=== PATIENT | male | born 1990 | race Caucasian/White ===

== ENCOUNTER 2023-02-13 08:55 | Outpatient (AMB) | payer MEDICAID, SELFPAY ==
--- NOTE | 2023-02-13 09:05 | A.OFFVIS_ITS ---
Intake Intake Visit Reasons: Infertility/low sperm count Intake Note: New Patient presents for initial visit infertility/low sperm Urology Medications: none Blood Thinner: none Freight Coordinator Required: No Accompanied by: Self / Same As Patient Allergies Penicillins Allergy (Verified 02/13/23 20:13) Rash Medication List - Last Reconciled 02/13/23 by PETER Polk levothyroxine 25 mcg PO DAILY metformin 1,000 mg PO BID HPI HPI Comments History of Present Illness Details Pipo is a very pleasant 32-year-old male patient of Dr. Rainer Montero. He has a past medical history of type 2 diabetes and hypothyroidism. He presents to the office today as a new patient for question of infertility. In discussion with the patient today he reports to be doing and feeling well. He reports over the last year he has been actively trying to conceive. He reports having purchased an at home sperm analysis kit which noted low sperm count. He reports his partner has undergone infertility workup and has been told all is within normal limits. He denies any previous history of illness and or trauma. When asked he reports to be happy with his current voiding parameters. He denies urinary urgency, urinary frequency, incontinence, nocturia, hematuria, dysuria, foul smelling urine, changes to urinary stream, flank pain, fever, and or chills. He currently has no children. Discussed at length potential causes for infertility as well as further infertility workup. Patient denies any smoking or illicit drug use. He reports compliance with metformin daily and A1c approximately 1 month ago noted to be 7.5. Discussed at length importance of managing diabetes, avoiding caffeine, lowering BMI, appropriate nutrition and decrease in stress can assist in fertility. Patient otherwise denies any issues or concerns at this time. [facility] Medical History (Updated 02/13/23 @ 09:50 by PETER Polk) Male infertility Obesity (BMI 30-39.9) Type 2 diabetes mellitus Review of Systems Const All systems reviewed & are unremarkable except as noted in HPI and below Reports no additional complaints Eyes Reports no additional complaints ENT Reports no additional complaints Card Reports no additional complaints Resp Reports no additional complaints GI Reports no additional complaints Reports as per HPI Musc Reports no additional complaints Neuro Reports no additional complaints Psych Reports as per HPI Endo Reports as per HPI Pancho/Lymph Reports no additional complaints Aller/Immun Reports no additional complaints Physical Exam Const General: cooperative, healthy appearing, comfortable, no acute distress, well developed, alert and awake Orientation/consciousness: patient oriented x3 Limitations: no limitations HEENT Head: Yes normal to inspection, Yes normocephalic and Yes atraumatic Ears: hearing grossly normal bilaterally Eyes General: appearance normal, both eyes and all related structures Neck Neck: Yes normal visual inspection and Yes trachea midline Chest Chest palpation & inspection: normal inspection of the chest Resp Effort & Inspection: normal respiratory effort and able to speak in complete sentences Cardio Rate: regular rate GI Inspection: Yes normal to inspection General: Yes no CVA tenderness Back/Spine/Pelvis Back: no CVA tenderness Skin General skin exam: no rashes or lesions noted Neuro General: patient oriented x3 Extrem General: Yes normal to inspection Psych Appearance: grossly normal and well kempt Mental Status: mental status grossly normal Speech and movement: Normal speech and movement present and Clear speech present Affect: normal affect Attitude: cooperative Thought process: Normal thought process present Thought content: Normal thought content present Insight: Good insight present (Psych) Judgement: Good judgement present (Psych) Results AMB Urinalysis, Automated UA Leukoctes 0 Stefani/uL Last Edit by Imperva on 02/13/23 09:32 UA Nitrite Negative Last Edit by Imperva on 02/13/23 09:32 UA Urobilinogen 0.2 mg/dL Last Edit by Imperva on 02/13/23 09:32 UA Protein 15 mg/dL Last Edit by Imperva on 02/13/23 09:32 UA pH 7.5 Last Edit by Imperva on 02/13/23 09:32 UA Blood 0 Luis Armando/uL Last Edit by Imperva on 02/13/23 09:32 UA Specific [place] 1.010 Last Edit by Imperva on 02/13/23 09:32 UA Ketone Negative Last Edit by Imperva on 02/13/23 09:32 UA Bilirubin 0 mg/dL Last Edit by Imperva on 02/13/23 09:32 UA Glucose 0 mg/dL Last Edit by Imperva on 02/13/23 09:32 Results Reviewed Results Reviewed: Laboratory Last Values Urine pH (Auto) 7.5 02/13/23 09:07 Specific [place] (Auto) 1.010 02/13/23 09:07 Urine Protein (Auto) 15 mg/dL 02/13/23 09:07 Glucose (UA)(Auto) 0 mg/dL 02/13/23 09:07 Urine Ketones (Auto) Negative 02/13/23 09:07 Urine Blood (Auto) 0 Luis Armando/uL 02/13/23 09:07 Urine Nitrite (Auto) Negative 02/13/23 09:07 Urine Bilirubin (Auto) 0 mg/dL 02/13/23 09:07 Urine Urobilinogen (Auto) 0.2 mg/dL 02/13/23 09:07 Leukocyte Esterase (Auto) 0 Stefani/uL 02/13/23 09:07 Assessment & Plan Assessment & Plan (1) Male infertility: Code(s): N46.9 - Male infertility, unspecified Plan In office urinalysis results reviewed with the patient today; as noted above. Discussed at length potential causes for possible infertility. Will obtain estradiol, FSH, LH, prolactin, testosterone, free and total testosterone, and bioavailable testosterone. Discussed bringing in semen for semen analysis at next visit. Discussed at length lifestyle modifications to assist with possible infertility. Patient is happy with current voiding parameters. Follow-up in 1-[address] Ordoñez with labs to be completed prior and semen to be brought to follow-up appointment Orders: Orders Estradiol Ultra Sensitive Today E29.1 - Testicular hypofunction, N46.9 - Male infertility, unspecified Follicle Stimulating Hormone Today N46.9 - Male infertility, unspecified Lutenizing Hormone Today N46.9 - Male infertility, unspecified Prolactin Today N46.9 - Male infertility, unspecified Bioavailable Testosterone Today N46.9 - Male infertility, unspecified Testosterone, Free/Total Today N46.9 - Male infertility, unspecified AMB Urinalysis Automated Today Z13.9 - Encounter for screening, unspecified Coding Level of Care Code New Pt Level 3 (46731) Diagnoses Male infertility N46.9
== END 2023-02-13 09:51 | disposition home or self-care (01) ==
PROVIDERS: PCP Student in an Organized Health Care Education/Training Program; Visit Provider Nurse Practitioner Family
DX: N46.9 Male infertility, unspecified (principal)
CPT/HCPCS: 99203

== ENCOUNTER → 2023-02-13 08:55 | Outpatient (BNVA) | payer MEDICAID, SELFPAY | PROVIDERS: PCP Student in an Organized Health Care Education/Training Program; Visit Provider Nurse Practitioner Family | DX: N46.9 Male infertility, unspecified (principal); E29.1 Testicular hypofunction | CPT/HCPCS: 99202; 99203 ==

== ENCOUNTER 2023-02-14 09:17 | Outpatient (REF) | payer MEDICAID, SELFPAY ==
[2023-02-14 12:17] LABS: Free T4 (Free Thyroxine) 0.95 ng/dL (0.71-1.85); T4 Thyroxine 6.4 ug/dL (4.5-12.0); Thyroid Stimulating Hormone 2.49 uIU/mL (0.32-4.0)
[2023-02-15 08:38] LABS: Follicle Stimulating Hormone 6.6 mIU/mL (1.6-8.0); Prolactin 8.1 ng/mL (2.0-18.0)
[2023-02-19 07:43] LABS: Testosterone-Albumin 4.7 g/dL (3.6-5.1); Testosterone-Bioavailable 152.6 ng/dL (110.0-575.0); Testosterone-Free 71.2 pg/mL (46.0-224.0); Testosterone-SHBG 13 nmol/L (10-50); Testosterone-Total 301 ng/dL (250-1100)
[2023-02-20 20:29] LABS: Estradiol Ultra Sensitive 13 pg/mL (< OR = 29)
== END 2023-02-14 09:18 | disposition home or self-care (01) ==
LOC: HO.HHCL 09:17
PROVIDERS: Nurse Practitioner Family; Visit Provider Student in an Organized Health Care Education/Training Program
DX: N46.9 Male infertility, unspecified (principal); E29.1 Testicular hypofunction; E03.9 Hypothyroidism, unspecified
CPT/HCPCS: 36415; 82670; 83001; 83002; 84146; 84402; 84403; 84436; 84439; 84443

== ENCOUNTER 2023-04-10 15:47 | Outpatient (AMB) | payer MEDICAID, SELFPAY ==
--- NOTE | 2023-04-10 16:22 | MHC.OFFVIS ---
Intake Intake Visit Reasons: low sperm count- semen analysis/labs Intake Note: Patient presents for follow up visit infertility/low sperm Urology Medications: none Blood Thinner: none Fish Hatchery Laborer Required: No Accompanied by: Self / Same As Patient Allergies Penicillins Allergy (Verified 04/10/23 16:24) Rash HPI HPI Comments History of Present Illness Details Pipo is a pleasant male. He is a patient of Dr.Ponce Montero. He is seen for the following urologic conditions - male infertility Gross examination of sperm performed today. No sperm seen. Will moved to formal microscopy Male infertility - 32-year-old Has been trying for past year At home kit indicated low sperm count Partner evaluation negative Baseline laboratory evaluation 02/21 minimal abnormalities with normal free testosterone Has lost substantial weight and A1c 5.4 04/23 Complete initial formal evaluation May require post void pellet evaluation due to diabetic [facility] Medical History Obesity (BMI 30-39.9) Type 2 diabetes mellitus Male infertility Review of Systems Const Denies chills and Denies fever(s) Card Reports no additional complaints and Denies syncope Resp Denies cough GI Denies abdominal pain and Denies heartburn Reports as per HPI and Denies change in libido Neuro Denies syncope Psych Denies change in libido Endo Denies change in libido Physical Exam Const General: cooperative, healthy appearing, comfortable and no acute distress Orientation/consciousness: patient oriented x3 HEENT Face and sinus: Yes normal facial exam Mouth: moist mucous membranes Neck Neck: Yes normal visual inspection, Yes full ROM and Yes trachea midline Chest Chest palpation & inspection: normal inspection of the chest Resp Effort & Inspection: normal respiratory effort, able to speak in complete sentences and no respiratory distress GI Inspection: Yes normal to inspection Back/Spine/Pelvis Cervical Spine: normal cervical lordosis Thoracic/Lumbar Spine: thoracic and lumbar spine normal to inspection Skin General skin exam: no rashes or lesions noted Neuro General: patient oriented x3, gait normal, tone normal and moves all extremities Extrem General: Yes normal to inspection and Yes capillary refill normal Assessment & Plan Assessment & Plan (1) Male infertility: Code(s): N46.9 - Male infertility, unspecified Plan Formal semen analysis May benefit from attempt at bladder neck tightening using Sudafed Patient Instructions: Imaging studies, laboratory and physical exam results were discussed and reviewed in detail. No major barriers to patient understanding were identified. An opportunity to ask questions regarding the treatment plan was provided. All questions were answered. The patient expressed understanding and agreement with the above treatment plan. The patient is aware they should contact our office by phone for worsening of their current condition or the appearance of new urologic symptoms. Compliance is encouraged with any medications and followup testing that is ordered. It is a privilege to participate in the urologic care of your patient. If you have any questions or concerns regarding treatment for the above conditions, or other urologic issues, please do not hesitate to contact me. The office telephone contact is [phone]. This note is constructed using voice recognition software. While every effort has been made to ensure accuracy turning lathe tender errors may have been included. Yours sincerely, Dr Ernie Ordoñez MD, [facility] - Urology Providers of Expert, Compassionate Care for the Genitourinary System Coding Level of Care Code Est Pt Level 3 (55854) Diagnoses Male infertility N46.9
== END 2023-04-10 16:55 | disposition home or self-care (01) ==
PROVIDERS: PCP Student in an Organized Health Care Education/Training Program; Visit Provider Urology
DX: N46.9 Male infertility, unspecified (principal)
CPT/HCPCS: 99213

== ENCOUNTER → 2023-04-10 15:47 | Outpatient (BNVA) | payer MEDICAID, SELFPAY | PROVIDERS: PCP Student in an Organized Health Care Education/Training Program; Visit Provider Urology | DX: N46.9 Male infertility, unspecified (principal) | CPT/HCPCS: 99212 ==

== ENCOUNTER 2023-04-12 10:22 | Outpatient (REF) | payer MEDICAID, SELFPAY ==
[2023-04-12 12:34] LABS: Alanine Aminotransferase 18 U/L (0-40); Albumin Level 4.7 g/dL (3.5-5.0); Alkaline Phosphatase 43 U/L (39-117); Anion Gap 18 (12-20); Aspartate Amino Transferase 21 U/L (5-37); Bilirubin Total 0.8 mg/dL (0.0-1.0); Blood Urea Nitrogen 16 mg/dL (9-16); Calcium 10.6 mg/dL (8.4-10.2); Carbon Dioxide 23 mmol/L (22-29); Chloride 102 mmol/L (96-108); Cholesterol 291 mg/dL (<200); Estimated Glomerular Filt Rate > 60; Glucose Random 83 mg/dL (60-115); HDL Cholesterol 64 mg/dL (>40); LDL Cholesterol Calculated 208 mg/dL (<100); Potassium 4.2 mmol/L (3.3-5.1); Sodium 139 mmol/L (135-145); Total Protein 8.4 g/dL (6.5-8.0); Triglycerides 96 mg/dL (<150)
[2023-04-12 12:35] LABS: Syphilis Screen Nonreactive (Nonreactive)
[2023-04-12 12:41] LABS: Free T4 (Free Thyroxine) 0.96 ng/dL (0.71-1.85); Thyroid Stimulating Hormone 2.66 uIU/mL (0.32-4.0)
[2023-04-12 12:47] LABS: Folate 10.7 ng/mL (> or = 4.0); Vitamin B12 882 pg/mL (200-900)
[2023-04-12 12:49] LABS: Estimated Average Glucose 108 mg/dL; Hemoglobin A1c % 5.4 % (<6.0)
[2023-04-12 13:25] LABS: Creatinine Urine 15.83 mg/dL; Microalbumin Urine < 5.0 mg/L
== END 2023-04-12 10:23 | disposition home or self-care (01) ==
LOC: HO.HHCL 10:22
PROVIDERS: Visit Provider Student in an Organized Health Care Education/Training Program
DX: Z00.00 Encounter for general adult medical examination without abnormal findings (principal); E03.9 Hypothyroidism, unspecified; E11.9 Type 2 diabetes mellitus without complications
CPT/HCPCS: 36415; 80053; 80061; 82043; 82570; 82607; 82746; 83036; 84439; 84443; 86780

== ENCOUNTER 2023-05-23 09:50 | Outpatient (AMB) | payer SELFPAY ==
--- NOTE | 2023-05-23 09:49 | A.OFFVIS_ITS ---
Intake Intake Visit Reasons: sperm analysis results Intake Note: Pipo is a 33 year old male who presents today VIA telehealth for results Allergies Penicillins Allergy (Verified 05/23/23 09:51) Rash Medication List - Last Reconciled 05/23/23 by Ernie Ordoñez MD levothyroxine 25 mcg PO DAILY metformin 1,000 mg PO BID HPI HPI Comments History of Present Illness Details Pipo is a pleasant male. He is a patient of Dr.Ponce Montero. He is seen for the following urologic conditions - male infertility Telemedicine Evaluation 15 min Consultation DoxXirrus Nohemi Video Discussed formal semen analysis Low volume, low pH, azoospermia Next step involves post ejaculation urinalysis since has history of diabetes Genetic testing for CFTR, Y chromosome microdeletion and karyotype Transrectal ultrasound to look for enlarged seminal vesicles from probable ejaculatory duct obstruction Discussed treatment for ejaculatory duct obstruction. HEATH typically associated with low volume, low pH and azospermia - The presence of an acidic and low vol ume azoospermic ejaculate, associated with absent seminal fructose, and palpable vas deferens is pathognomonic for the HEATH diagnosis Male Infertility Has been trying for past year At home kit indicated low sperm count Partner evaluation negative Has lost substantial weight and A1c 5.4 04/23 Initial office evaluation no sperm seen in sample He presents today for - follow-up evaluation Duration of infertility - has been trying for 12 months Prior no Coital timing - Patient is familiar with basal temperature monitoring to protect egg release yes Puberty onset - 11, normal facial head Prior genital surgery - no Risk factors for fertility include - present diabetes - reduced HbA1c to 5. 4 with metformin weight loss - absent varicocele, genital infection, cryptorchidism, hormonal disorder, genetic disorder, cirrhosis, gonadotoxin exposure - chemotherapy, radiation, occupational chemical, hyperthermia, cigarette Laboratories - 04/23 normal testosterone, normal FSH 6.6 Semen analysis - total motile sperm less than 10,000,00 0 - consistent with severe infertility - parameters include low volume less tami n 1.5 cc, low pH less than 7.2 - morphology azoospermic Genetics - CFTR, Y chromosome micro deletion, Karyotype - pending Imaging - TRUS pending Therapeutic plan includes - repeat semen analysis with post ejacul atory urine, imaging, genetics [facility] Medical History Obesity (BMI 30-39.9) Type 2 diabetes mellitus Male infertility Review of Systems Const All systems reviewed & are unremarkable except as noted in HPI and below Reports no additional complaints Resp Reports no additional complaints GI Reports no additional complaints Reports as per HPI Musc Reports no additional complaints Physical Exam Telemedicine evaluation Appropriate responses Regular breathing rate and rhythm HEENT Head: Yes normal to inspection Ears: hearing grossly normal bilaterally Eyes General: appearance normal, both eyes and all related structures Neck Neck: Yes normal visual inspection Chest Chest palpation & inspection: normal inspection of the chest Resp Effort & Inspection: normal respiratory effort and able to speak in complete sentences Assessment & Plan Assessment & Plan (1) Male infertility: Code(s): N46.9 - Male infertility, unspecified Plan Complaint investigations with imaging Orders: Orders Other Ref Test - Misc Today N46.9 - Male infertility, unspecified US prostate volume Today N46.9 - Male infertility, unspecified Patient Instructions: Imaging studies, laboratory and physical exam results were discussed and reviewed in detail. No major barriers to patient understanding were identified. An opportunity to ask questions regarding the treatment plan was provided. All questions were answered. The patient expressed understanding and agreement with the above treatment plan. The patient is aware they should contact our office by phone for worsening of their current condition or the appearance of new urologic symptoms. Compliance is encouraged with any medications and followup testing that is ordered. It is a privilege to participate in the urologic care of your patient. If you have any questions or concerns regarding treatment for the above conditions, or other urologic issues, please do not hesitate to contact me. The office telephone contact is [phone]. This note is constructed using voice recognition software. While every effort has been made to ensure accuracy landing signal officer errors may have been included. Yours sincerely, Dr Ernie Ordoñez MD, [facility] - Urology Providers of Expert, Compassionate Care for the Genitourinary System Telehealth Telehealth Location of provider rendering services: practice address Location of patient: address on file Patient Identification confirmed using: Name, : Yes Telehealth method: video Patient verbally consented to treatment: Yes Patient verbally consented to billing insurance company: Yes Patient informed of any privacy concerns related to visit: Yes Coding Level of Care Code Tele Est Pt Level 4 (29028) Diagnoses Male infertility N46.9
== END 2023-05-23 12:52 | disposition home or self-care (01) ==
LOC: HO.HUSH 09:50
PROVIDERS: PCP Student in an Organized Health Care Education/Training Program; Visit Provider Urology
DX: N46.9 Male infertility, unspecified (principal)
CPT/HCPCS: 99214

== ENCOUNTER → 2023-05-23 09:50 | Outpatient (BNVA) | payer MEDICAID, SELFPAY | PROVIDERS: PCP Student in an Organized Health Care Education/Training Program; Visit Provider Urology ==

== ENCOUNTER 2023-07-10 08:33 | Outpatient (REF) | payer OTHER, SELFPAY ==
[2023-07-10 12:02] LABS: Alanine Aminotransferase 24 U/L (0-40); Albumin Level 4.7 g/dL (3.5-5.0); Alkaline Phosphatase 49 U/L (39-117); Anion Gap 16 (12-20); Aspartate Amino Transferase 20 U/L (5-37); Bilirubin Total 0.8 mg/dL (0.0-1.0); Blood Urea Nitrogen 15 mg/dL (9-16); Calcium 10.2 mg/dL (8.4-10.2); Carbon Dioxide 25 mmol/L (22-29); Chloride 104 mmol/L (96-108); Cholesterol 343 mg/dL (<200); Estimated Glomerular Filt Rate > 60; Glucose Random 95 mg/dL (60-115); HDL Cholesterol 70 mg/dL (>40); LDL Cholesterol Calculated 253 mg/dL (<100); Potassium 4.6 mmol/L (3.3-5.1); Sodium 140 mmol/L (135-145); Total Protein 8.4 g/dL (6.5-8.0); Triglycerides 104 mg/dL (<150)
== END 2023-07-10 08:34 | disposition home or self-care (01) ==
LOC: HO.HHCL 08:33
PROVIDERS: Visit Provider Student in an Organized Health Care Education/Training Program
DX: E78.5 Hyperlipidemia, unspecified (principal)
CPT/HCPCS: 36415; 80053; 80061

== ENCOUNTER → 2023-07-11 11:37 | Outpatient (BNVA) | payer MEDICAID, SELFPAY | PROVIDERS: PCP Student in an Organized Health Care Education/Training Program; Visit Provider Urology ==

== ENCOUNTER 2023-07-31 14:34 | Outpatient (REF) | payer BC, SELFPAY ==
--- NOTE | ~2023-07-31 | US_ITS ---
ULTRASOUND PROSTATE GLAND CLINICAL: Male infertility. COMPARISON: None. TECHNIQUE: Using transrectal technique with grayscale and color modalities, ultrasound examination is performed of the prostate gland. FINDINGS: Prostate dimensions are 4.0 x 2.0 x 3.4 cm (volume 14.8 mL). There are coarse central and apical prostate calcifications. No discrete prostate lesion is seen. The seminal vesicles show symmetric mild enlargement, without focal lesion identified. No pelvic free fluid is seen. US/US prostate volume IMPRESSION: 1. Prostate volume is within normal limits. No focal prostate lesion is noted. 2. There is symmetric mild enlargement of the bilateral seminal vesicles.
== END 2023-07-31 14:35 | disposition home or self-care (01) ==
LOC: HO.US 14:34
PROVIDERS: PCP Student in an Organized Health Care Education/Training Program; Visit Provider Urology
DX: N46.9 Male infertility, unspecified (principal)
CPT/HCPCS: 76872

== ENCOUNTER 2023-09-12 09:59 | Outpatient (AMB) | payer BC, SELFPAY ==
--- NOTE | 2023-09-12 10:06 | A.OFFVIS_ITS ---
Intake Intake Visit Reasons: /(set) LVM reminder Intake Note: Patient presents today for a follow-up on U/S Meds- None Allergies to Antibiotic- Penicillins Blood Thinner- None General Technician Required: No Accompanied by: Self / Same As Patient Allergies Penicillins Allergy (Verified 09/12/23 10:10) Rash Medication List - Last Reconciled 09/12/23 by Ernie Ordoñez MD levothyroxine 25 mcg PO DAILY metformin 1,000 mg PO BID multivitamin (Multiple Vitamins tablet) 1 tab PO DAILY HPI HPI Comments History of Present Illness Details Pipo is a pleasant male. He is a patient of Dr.Ponce Montero. He is seen for the following urologic conditions - male infertility Discussed ultrasound results Unless seminal vesicles Recommend ejaculatory duct obstruction procedure Would use cannulation with laser incision Explained risks and benefits including possibility that sperm may not be recovered He is willing to go ahead with trial Discussed treatment for ejaculatory duct obstruction. HEATH typically associated with low volume, low pH and azospermia - The presence of an acidic and low vol ume azoospermic ejaculate, associated with absent seminal fructose, and palpable vas deferens is pathognomonic for the HEATH diagnosis Male Infertility Has been trying for past year At home kit indicated low sperm count Partner evaluation negative Has lost substantial weight and A1c 5.4 04/23 Initial office evaluation no sperm seen in sample He presents today for - follow-up evaluation Duration of infertility - has been trying for 12 months Prior no Coital timing - Patient is familiar with basal temperature monitoring to protect egg release yes Puberty onset - 11, normal facial head Prior genital surgery - no Risk factors for fertility include - present diabetes - reduced HbA1c to 5. 4 with metformin weight loss - absent varicocele, genital infection, cryptorchidism, hormonal disorder, genetic disorder, cirrhosis, gonadotoxin exposure - chemotherapy, radiation, occupational chemical, hyperthermia, cigarette Laboratories - 04/23 normal testosterone, normal FSH 6.6 Semen analysis - total motile sperm less than 10,000,00 0 - consistent with severe infertility - parameters include low volume less tami n 1.5 cc, low pH less than 7.2 - morphology azoospermic Genetics - CFTR, Y chromosome micro deletion, Karyotype - pending Imaging - TRUS pending Therapeutic plan includes - ejaculatory duct incision with ejacula tory duct cannulization [facility] Medical History Obesity (BMI 30-39.9) Type 2 diabetes mellitus Male infertility Review of Systems Const Denies chills and Denies fever(s) Card Reports no additional complaints and Denies syncope Resp Denies cough GI Denies abdominal pain and Denies heartburn Reports as per HPI and Denies change in libido Neuro Denies syncope Psych Denies change in libido Endo Denies change in libido Physical Exam Const General: cooperative, healthy appearing, comfortable and no acute distress Orientation/consciousness: patient oriented x3 HEENT Face and sinus: Yes normal facial exam Mouth: moist mucous membranes Neck Neck: Yes normal visual inspection, Yes full ROM and Yes trachea midline Chest Chest palpation & inspection: normal inspection of the chest Resp Effort & Inspection: normal respiratory effort, able to speak in complete sentences and no respiratory distress GI Inspection: Yes normal to inspection Back/Spine/Pelvis Cervical Spine: normal cervical lordosis Thoracic/Lumbar Spine: thoracic and lumbar spine normal to inspection Skin General skin exam: no rashes or lesions noted Neuro General: patient oriented x3, gait normal, tone normal and moves all extremities Extrem General: Yes normal to inspection and Yes capillary refill normal Assessment & Plan Assessment & Plan (1) Male infertility: Code(s): N46.9 - Male infertility, unspecified (2) Congenital atresia of ejaculatory duct: Code(s): Q55.4 - Other congenital malformations of vas deferens, epididymis, seminal vesicles and prostate Plan Risks, benefits and alternatives to therapy were discussed. These include but are not limited to infection, bleeding, damage to local organs and tissues, need for further interventions. Anesthetic risks regarding cardiac arrhythmia, blood clots, and potential mortality were discussed. The patient understands the typical recovery time and the outpatient nature of the procedure. After consideration of these risks the patient gives full informed consent and they wish to move ahead with the procedure. Plan for cystoscopy with ejaculatory duct cannulization and ejaculatory duct incision using laser Patient Instructions: Imaging studies, laboratory and physical exam results were discussed and reviewed in detail. No major barriers to patient understanding were identified. An opportunity to ask questions regarding the treatment plan was provided. All questions were answered. The patient expressed understanding and agreement with the above treatment plan. The patient is aware they should contact our office by phone for worsening of their current condition or the appearance of new urologic symptoms. Compliance is encouraged with any medications and followup testing that is ordered. It is a privilege to participate in the urologic care of your patient. If you have any questions or concerns regarding treatment for the above conditions, or other urologic issues, please do not hesitate to contact me. The office telephone contact is [phone]. This note is constructed using voice recognition software. While every effort has been made to ensure accuracy radiographer mammographer errors may have been included. Yours sincerely, Dr Ernie Ordoñez MD, [facility] - Urology Providers of Expert, Compassionate Care for the Genitourinary System Coding Level of Care Code Est Pt Level 4 (19043) Diagnoses Male infertility N46.9 Congenital atresia of ejaculatory duct Q55.4
== END 2023-09-12 10:39 | disposition home or self-care (01) ==
PROVIDERS: PCP Student in an Organized Health Care Education/Training Program; Visit Provider Urology
DX: N46.9 Male infertility, unspecified (principal); Q55.4 Other congenital malformations of vas deferens, epididymis, seminal vesicles and prostate
CPT/HCPCS: 99214

== ENCOUNTER → 2023-09-12 09:59 | Outpatient (BNVA) | payer OTHER, SELFPAY | PROVIDERS: PCP Student in an Organized Health Care Education/Training Program; Visit Provider Urology | DX: N46.9 Male infertility, unspecified (principal); Q55.4 Other congenital malformations of vas deferens, epididymis, seminal vesicles and prostate; Z79.899 Other long term (current) drug therapy | CPT/HCPCS: 99212 ==

== ENCOUNTER 2023-10-17 08:59 | Outpatient (REF) | payer BC, SELFPAY ==
[2023-10-17 12:01] LABS: Estimated Average Glucose 114 mg/dL; Hemoglobin A1C 149.0719 umol/L; Hemoglobin A1c % 5.6 % (<6.0)
[2023-10-17 12:14] LABS: Alanine Aminotransferase 17 U/L (0-40); Albumin Level 4.5 g/dL (3.5-5.0); Alkaline Phosphatase 49 U/L (39-117); Anion Gap 12 (12-20); Aspartate Amino Transferase 20 U/L (5-37); Bilirubin Total 0.7 mg/dL (0.0-1.0); Blood Urea Nitrogen 15 mg/dL (9-16); Calcium 9.6 mg/dL (8.4-10.2); Carbon Dioxide 25 mmol/L (22-29); Chloride 104 mmol/L (96-108); Cholesterol 305 mg/dL (<200); Estimated Glomerular Filt Rate > 60; Glucose Random 99 mg/dL (60-115); HDL Cholesterol 90 mg/dL (>40); LDL Cholesterol Calculated 203 mg/dL (<100); Potassium 4.3 mmol/L (3.3-5.1); Sodium 137 mmol/L (135-145); Triglycerides 61 mg/dL (<150)
[2023-10-17 12:17] LABS: Free T4 (Free Thyroxine) 0.84 ng/dL (0.71-1.85); Thyroid Stimulating Hormone 2.07 uIU/mL (0.32-4.0)
[2023-10-17 12:25] LABS: Vitamin B12 768 pg/mL (200-900)
== END 2023-10-17 09:00 | disposition home or self-care (01) ==
LOC: HO.HHCL 08:59
PROVIDERS: Visit Provider Student in an Organized Health Care Education/Training Program
DX: E11.9 Type 2 diabetes mellitus without complications (principal); E03.9 Hypothyroidism, unspecified
CPT/HCPCS: 36415; 80053; 80061; 82607; 82746; 83036; 84439; 84443

== ENCOUNTER 2023-10-29 09:53 | Day surgery (SDC) | payer BC, OTHER, SELFPAY ==
[2023-10-25 14:16] VITALS: BMI 31.4
--- NOTE | 2023-10-26 09:05 | HO.ANESPROP2 ---
Documented by User: Kailey Barriga NP 10/26/23 09:05 HPI - Anesthesia Eval Consult details Narrative: 33yo M for Cystoscopy Ejaculatory duct exploration [facility] Active Problems Active Problems: All Active Problems Congenital atresia of ejaculatory duct (Acute) Male infertility (Acute) Past Medical History Medical History Obesity (BMI 30-39.9) Type 2 diabetes mellitus Male infertility Social History Social History Patient Tobacco Use Status: Never used Tobacco Substance Use Frequency: Occasionally Are you DNR?: No Advance Directives: No Advance Directives Information Provided: Yes Nutrition Risks: No Nutritional Risk Meds Allergies Allergy/AdvReac Type Severity Reaction Status Date / Time Penicillins Allergy Rash Verified 09/12/23 10:10 Home Medications ?Medication ?Instructions ?Recorded ?Confirmed ?Last Taken ?Type levothyroxine 25 mcg tablet 25 mcg PO DAILY 02/07/23 09/12/23 Unknown History metformin 1,000 mg tablet 1,000 mg PO BID 02/07/23 09/12/23 Unknown History multivitamin (Multiple Vitamins 1 tab PO DAILY 09/12/23 09/12/23 Unknown History tablet) Exam Height,Weight and Vital Signs: Height 5 ft 3 in Weight 80.286 kg Assessment and Plan Assessment Anesthesia Assessment: Chart Reviewed Documented by User: Leia Ang MD 10/29/23 12:05 [facility] Past Medical History Medical History Obesity (BMI 30-39.9) Type 2 diabetes mellitus Male infertility Family History Family history of problems with anesthesia: No Surgical History History of Problems with Anesthesia: No Social History Social History Patient Tobacco Use Status: Never used Tobacco Substance Use Frequency: Occasionally Are you DNR?: No Advance Directives: No Advance Directives Information Provided: Yes Nutrition Risks: No Nutritional Risk Meds Allergies Allergy/AdvReac Type Severity Reaction Status Date / Time Penicillins Allergy Rash Verified 09/12/23 10:10 Home Medications ?Medication ?Instructions ?Recorded ?Confirmed ?Last Taken ?Type levothyroxine 25 mcg tablet 25 mcg PO DAILY 02/07/23 09/12/23 Unknown History metformin 1,000 mg tablet 1,000 mg PO BID 02/07/23 09/12/23 Unknown History multivitamin (Multiple Vitamins 1 tab PO DAILY 09/12/23 09/12/23 Unknown History tablet) Exam Airway Mallampati Class: II TM Dist: >3cm Neck ROM: Full Assessment and Plan Assessment Anesthesia Assessment: Anesthesia Plan Discussed Final Anesthetic Review Family History of Problems with Anesthesia: No History of Problems with Anesthesia: No NPO: Yes ASA Class: II Final Preanesthetic Review: No Changes in Pt Med Stat, Meds/Allgs Chart Reviewed, Consent Obtained/Reviewed and Anes Risks/Benef Reviewed Patient Risk: Low Procedure Risk: Low Anesthetic Plan Anesthetic Plan: GA Disposition: Standard PACU
[2023-10-29] MEDS: Lactated Ringers 1,000 ML 100 ML IVCONT (11:33)
[2023-10-29 11:35] VITALS: BP 125/70; PULSE 66; RESP 18; TEMP 36.6; O2SAT 98
[2023-10-29 11:35] LABS: Glucose, Whole Blood 128 mg/dL (60-115)
[2023-10-29 11:36] VITALS: BMI 28.7
--- NOTE | 2023-10-29 13:46 | MHC.SHP ---
Pre-Procedural Eval Section A - 24 Hr Update-Section A only Date of Service: 10/29/23 The patient is an INPATIENT: No Changes since office visit: No Cold of Flu in the past 2 weeks, No New Medical Problems, No Changes in Medication and No Patient answered all questions The patient has been examined within 24 hours of the surgical procedure. The History & Physical has been completed within 30 days and I have reviewed it.: Yes Section B - Complete if H&P > 30 days Chief Complaint: Male infertility, unspecified Allergies: Allergies Allergy/AdvReac Type Severity Reaction Status Date / Time Penicillins Allergy Rash Verified 09/12/23 10:10 Plan Diagnosis/Plan: Unchanged (Cystoscopy with bilateral vesiculoscopy) I have reviewed the history and physical and performed a pertinent physical examination on my patient. No changes have occurred unless specified. Time Spent With Patient Time: Total time managing care of this patient today ____ minutes.
[2023-10-29 15:05] VITALS: BP 126/79; PULSE 72; RESP 14; TEMP 36.4; O2SAT 99
[2023-10-29 15:10] VITALS: BP 128/81; PULSE 64; RESP 16; O2SAT 96
[2023-10-29 15:15] VITALS: BP 114/84; PULSE 65; RESP 16; O2SAT 96
[2023-10-29 15:20] VITALS: BP 124/85; PULSE 64; RESP 20; O2SAT 97
[2023-10-29 15:35] VITALS: BP 126/84; PULSE 68; RESP 20; TEMP 36.4; O2SAT 97
--- NOTE | 2023-11-13 15:24 | W.PM.OPN ---
Operative Note Operative Note Date of Service: 10/29/23 Narrative: PreOperative Diagnosis: painful ejaculation, oligospermia Post Operative Diagnosis: painful ejaculation, oligospermia Procedure: Bilateral vesiculoscopy with bilateral seminal vesicle incision - [facility] [id number] Surgeon: Dr Ernie Ordoñez Anesthesia: General Indications for procedure: Seminal vesicle enlargement with inflammation and pain on ejactulation Procedure: After informed consent was verified the patient was brought to the operating room and placed in a supine position. Anesthesia was administered per protocol. The patient was placed in modified dorsal lithotomy position. The patient was prepped and draped in a sterile fashion. Safety pause time-out was performed. Antibiotics being given. Using a short ureteral scope the ureteral scope was advanced into the urethra. The verumontanum was enterd. At the verumontanum small opening could be seen to the left side. This was cannulated with a Glidewire. The ureteral scope was removed. Under fluoroscopy which confirmed the Glidewire been inserted into the left seminal vesicle. The ureteral scope was reinserted. Using a holmium laser with low power settings incision was made into the left seminal vesicle docked. The scope was advanced. There was debris and discolored seminal fluid within the duct. This was irrigated clear. Irrigation had 400 mg of Levaquin within 1 L. Attempt was made to find the right ejaculatory duct at the 5 o'clock position from the utricle opening. This was not easily found. We advanced the scope into the utricle and through the right posterolateral aspect divided the thin membrane that allowed entry into the right ejaculatory duct seminal vesicle. This too was irrigated. At the completion of the procedure we removed the ureteral scope. A 14 Iceland[place] Laird catheter was placed which will remain overnight. Patient tolerated procedure well was extubated at the completion
== END 2023-10-29 15:45 | disposition home or self-care (01) ==
PROVIDERS: PCP Student in an Organized Health Care Education/Training Program; Visit Provider Urology
PROC: 0TJB8ZZ Inspection of Bladder, Via Natural or Artificial Opening Endoscopic (ICD-10-PCS; CPT 52000; principal; 2023-10-29 11:50)
DX: N46.9 Male infertility, unspecified (principal); E11.9 Type 2 diabetes mellitus without complications; E66.9 Obesity, unspecified; Z79.84 Long term (current) use of oral hypoglycemic drugs; Z79.899 Other long term (current) drug therapy; Z88.0 Allergy status to penicillin
CPT/HCPCS: 55605; 82947; C1769; J0131; J1100; J1956; J2250; J2405; J2704; J3010; Q9967

== ENCOUNTER → 2023-10-29 09:53 | Outpatient (BNV) | payer MEDICAID, SELFPAY | PROVIDERS: PCP Student in an Organized Health Care Education/Training Program; Visit Provider Urology | DX: N46.12 Oligospermia due to extratesticular causes (principal) | CPT/HCPCS: 55605 ==

== ENCOUNTER 2023-11-30 13:50 | Outpatient (AMB) | payer MEDICAID, SELFPAY ==
--- NOTE | 2023-11-30 13:56 | MHC.OFFVIS ---
Intake Visit Reasons: Ejaculatory duct exploration- follow up Allergies Penicillins Allergy (Verified 09/12/23 10:10) Rash Medication List - Last Reconciled 11/30/23 by Ernie Ordoñez MD levothyroxine 25 mcg PO DAILY metformin 1,000 mg PO BID multivitamin (Multiple Vitamins tablet) 1 tab PO DAILY pentoxifylline ER 400 mg PO BID 90 days vitamin E (dl, acetate) 450 mg PO DAILY 90 days HPI Comments Details: Pipo is a pleasant male. He is a patient of Dr.Ponce Montero. He is seen for the following urologic conditions - male infertility Ejaculatory duct vesiculoscopy performed 09/22 - left duct opened Will complete sperm evaluation Has noticed improvement in ejaculatory volume They have plan for ICI Male Infertility Has been trying for past year At home kit indicated low sperm count Partner evaluation negative Has lost substantial weight and A1c 5.4 04/23 Initial office evaluation no sperm seen in sample He presents today for - follow-up evaluation Duration of infertility - has been trying for 12 months Prior no Coital timing - Patient is familiar with basal temperature monitoring to protect egg release yes Puberty onset - 11, normal facial head Prior genital surgery - no Risk factors for fertility include - present diabetes - reduced HbA1c to 5.4 with metformin weight loss - absent varicocele, genital infection, cryptorchidism, hormonal disorder, genetic disorder, cirrhosis, gonadotoxin exposure - chemotherapy, radiation, occupational chemical, hyperthermia, cigarette Laboratories - 04/23 normal testosterone, normal FSH 6.6 Semen analysis - total motile sperm less than 10,000,000 - consistent with severe infertility - parameters include low volume less than 1.5 cc, low pH less than 7.2 - morphology azoospermic Genetics - CFTR, Y chromosome micro deletion, Karyotype - pending Imaging - TRUS pending Therapeutic plan includes - ejaculatory duct incision with [facility]aculatory duct cannulization [facility] Medical History Obesity (BMI 30-39.9) Type 2 diabetes mellitus Male infertility Social History Patient Tobacco Use Status: Never used Tobacco Review of Systems Const Denies chills and Denies fever(s) Card Reports no additional complaints and Denies syncope Resp Denies cough GI Denies abdominal pain and Denies heartburn Reports as per HPI and Denies change in libido Neuro Denies syncope Psych Denies change in libido Endo Denies change in libido Physical Exam Const General: cooperative, healthy appearing, comfortable and no acute distress Orientation/consciousness: patient oriented x3 HEENT Face and sinus: Yes normal facial exam Mouth: moist mucous membranes Neck Neck: Yes normal visual inspection, Yes full ROM and Yes trachea midline Chest Chest palpation & inspection: normal inspection of the chest Resp Effort & Inspection: normal respiratory effort, able to speak in complete sentences and no respiratory distress GI Inspection: Yes normal to inspection Back/Spine/Pelvis Cervical Spine: normal cervical lordosis Thoracic/Lumbar Spine: thoracic and lumbar spine normal to inspection Skin General skin exam: no rashes or lesions noted Neuro General: patient oriented x3, gait normal, tone normal and moves all extremities Extrem General: Yes normal to inspection and Yes capillary refill normal Assessment & Plan Assessment & Plan (1) Congenital atresia of ejaculatory duct: Code(s): Q55.4 - Other congenital malformations of vas deferens, epididymis, seminal vesicles and prostate Category: Medical (2) Male infertility: Code(s): N46.9 - Male infertility, unspecified Category: Medical Plan P.r.n. 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 No major barriers to patient understanding were identified. An opportunity to ask questions regarding the treatment plan was provided. All questions were answered. The patient expressed understanding and agreement with the above treatment plan. The patient is aware they should contact our office by phone for worsening of their current condition or the appearance of new urologic symptoms. Compliance is encouraged with any medications and followup testing that is ordered. It is a privilege to participate in the urologic care of your patient. If you have any questions or concerns regarding treatment for the above conditions, or other urologic issues, please do not hesitate to contact me. The office telephone contact is [phone]. This note is constructed using voice recognition software. While every effort has been made to ensure accuracy rod cup filler errors may have been included. Yours sincerely, Dr Ernie Ordoñez MD, [facility] - Urology Providers of Expert, Compassionate Care for the Genitourinary System Coding Level of Care Code Est Pt Level 3 (23179) Diagnoses Congenital atresia of ejaculatory duct Q55.4 Male infertility N46.9
== END 2023-11-30 14:53 | disposition home or self-care (01) ==
PROVIDERS: PCP Student in an Organized Health Care Education/Training Program; Visit Provider Urology
DX: Q55.4 Other congenital malformations of vas deferens, epididymis, seminal vesicles and prostate (principal); N46.9 Male infertility, unspecified
CPT/HCPCS: 99024

== ENCOUNTER → 2023-11-30 13:50 | Outpatient (BNVA) | payer MEDICAID, SELFPAY | PROVIDERS: PCP Student in an Organized Health Care Education/Training Program; Visit Provider Urology | DX: N46.9 Male infertility, unspecified (principal); E11.9 Type 2 diabetes mellitus without complications; Q55.4 Other congenital malformations of vas deferens, epididymis, seminal vesicles and prostate | CPT/HCPCS: 99212 ==

== ENCOUNTER 2024-03-06 08:34 | Outpatient (REF) | payer MEDICAID, SELFPAY ==
[2024-03-06 11:35] LABS: Hematocrit 45.2 % (42.0-52.0); Hemoglobin 15.2 g/dl (14.0-18.0); Mean Corpuscular HGB Conc 33.6 g/dl (31.0-36.0); Mean Corpuscular Hemoglobin 29.2 pg (27.0-33.0); Mean Corpuscular Volume 86.9 fL (80.0-98.0); Mean Platelet Volume 10.7 fL (9.4-12.4); Platelet Count 296 X10*3/uL (160-400); Red Cell Distribution Width 12.4 % (11.0-16.0); White Blood Count 5.8 X10*3/uL (4.8-10.8)
[2024-03-06 12:10] LABS: Syphilis Screen Nonreactive (Nonreactive)
[2024-03-06 12:17] LABS: Alanine Aminotransferase 16 U/L (0-40); Albumin Level 4.4 g/dL (3.5-5.0); Alkaline Phosphatase 42 U/L (39-117); Anion Gap 13 (12-20); Aspartate Amino Transferase 16 U/L (5-37); Bilirubin Total 0.7 mg/dL (0.0-1.0); Blood Urea Nitrogen 18 mg/dL (9-16); Calcium 9.9 mg/dL (8.4-10.2); Carbon Dioxide 23 mmol/L (22-29); Chloride 106 mmol/L (96-108); Cholesterol 258 mg/dL (<200); Estimated Average Glucose 114 mg/dL; Estimated Glomerular Filt Rate > 60; Glucose Random 105 mg/dL (60-115); HDL Cholesterol 67 mg/dL (>40); Hemoglobin A1c % 5.6 % (<6.0); LDL Cholesterol Calculated 172 mg/dL (<100); Potassium 4.1 mmol/L (3.3-5.1); Sodium 138 mmol/L (135-145); Total Protein 7.6 g/dL (6.5-8.0); Triglycerides 98 mg/dL (<150)
[2024-03-06 12:18] LABS: Free T4 (Free Thyroxine) 0.86 ng/dL (0.71-1.85); Thyroid Stimulating Hormone 1.83 uIU/mL (0.32-4.0)
[2024-03-06 12:21] LABS: Creatinine Urine 103.76 mg/dL; Microalbumin Urine < 5.0 mg/L
[2024-03-06 12:24] LABS: Folate 9.5 ng/mL (> or = 4.0); Vitamin B12 855 pg/mL (200-900)
[2024-03-06 12:40] LABS: HBS Num1 > 1000.00 mIU/mL (0-7.99); HIV AB/AG Nonreactive (Nonreactive); HIV Num 1 0.06 S/CO (0.00-0.99); Hepatitis B Core Antibody Nonreactive (Nonreactive); Hepatitis B Surface Antigen Negative (Negative); ~HepC Num1 0.18 S/CO (0.00-0.79); ~Hepatitis B Surface Antibody REACTIVE (Nonreactive); ~Hepatitis C Antibody Nonreactive (Nonreactive)
[2024-03-06 13:13] LABS: CT PCR NOT DETECTED (Not Detect.); NG PCR NOT DETECTED (Not Detect.)
== END 2024-03-06 08:35 | disposition home or self-care (01) ==
LOC: HO.HHCL 08:34
PROVIDERS: Visit Provider Student in an Organized Health Care Education/Training Program
DX: Z00.00 Encounter for general adult medical examination without abnormal findings (principal)
CPT/HCPCS: 36415; 80053; 80061; 82043; 82570; 82607; 82746; 83036; 84439; 84443; 85027; 86704; 86706; 86780; 86803; 87340; 87389; 87491; 87591

== ENCOUNTER 2025-04-07 10:03 | Outpatient (REF) | payer MEDICAID, SELFPAY ==
--- OUTSIDE RECORDS SUMMARY | 2025-04-07 09:15 | XMS_ITS | Encounter Summary ---
Author Organization [employer] Address [address] [place] [address] [address] [place] [address] Care Team Providers Care Aviation Survival Technician Name Role Phone Yue Quiros MD Primary Care Pro vider Encounter Details Date Type Department Care Team (Late st Contact Info) Description 04/07/2025 9:15 AM EDT Office Visit [facility] [address] [place] [address] Yue Quiros MD [address] [place] [address] Annual physical exam (Primary Dx); Encounter for vaccination; Encounter for immunization Social History Tobacco Use Types Packs/Day Years Used Date Smoking Tobacco: Never Passive Smoke Exposure: Never Smokeless Tobacco: Never Tobacco Cessation:Counseling Given: Not Answered Alcohol Use Standard Drinks/Week Comments Yes 0 (1 standard drink = 0.6 oz pure alcohol) 3 times a week -2 glasses of wine Depression Answer Date Recorded Patient Health Questionnaire-9 Score 0 04/07/2025 Patient Health Questionnaire-9 Score 0 04/07/2025 Last PHQ-9: Questionnaire Data Not on file 1 Housing Stability Answer Date Recorded What is your housing situation today? I have williamshomero tejada 04/07/[address] you li ve. Do you have problems with any of the following? None of the above 04/07/2025 Food Insecurity Answer Date Recorded Within the past 12 months, y ou worried that your food would run out before you got money to buy more: Never True 04/07/2025 Within the past 12 months,th e food you bought just didn't last and you didn't have enough money to get more: Never True 12/2024 Transportation Answer Date Recorded In the past 12 months, has l ack of transportation kept you from medical appts, meetings, work or from getting things needed for daily living? No 04/07/2025 Utilities Answer Date Recorded In the past 12 months, has t he electric, gas, oil or water company threatened to shut off services in your home? No 04/07/2025 Depression Answer Date Recorded Patient Health Questionnaire-2 Score 0 04/07/2025 Internet Access Answer Date Recorded Internet Access Q1 Yes 04/07/2025 Internet Access Q2 Not on file 04/07/2025 Sex and Gender Information Value Date Recorded Sex Assigned at Male 12/13/2022 9:17 AM EDT Legal Sex Male 9:39 AM EDT Gender Identity Male 12/13/2022 9:17 AM EDT Sexual Orientation Straight 12/13/2022 9: 17 AM EDT documented as of this encounter Last Filed Vital Signs Vital Sign Reading Time Taken Comments Blood Pressure 124/80 04/07/2025 9:24 AM EDT Pulse 50 04/07/2025 9:27 AM EDT Temperature 36.2 C (97.1 F) 04/07/2025 9:24 AM EDT Respiratory Rate 20 04/07/2025 9:24 AM EDT Oxygen Saturation 97% 04/07/2025 9:24 AM EDT Inhaled Oxygen Concentration - - Weight 76.3 kg (168 lb 3.2 oz) 04/07/2025 9:24 A M EDT Height 160 cm (5' 3 ) 04/07/2025 9:24 AM EDT Body Mass Index 29.8 04/07/2025 9:24 AM EDT documented in this encounter Functional Status * Over the past 2 weeks, how often have you been bothered by any of the following problems? Question Answer Date of Assessment Author Patient Health Questionnaire -2 Score 0 04/07/2025 9:25 AM EDT Meaghan Teixeira MA * Little interest or pleasure in doing things Answer Date of Assessment Author Not at all 04/07/2025 9:25 AM EDT Kamila Teixeira MA * Feeling down, depressed, or hopeless Answer Date of Assessment Author Not at all 04/07/2025 9:25 AM EDT Kamila Teixeira MA * Trouble falling or staying asleep, or sleeping too much Answer Date of Assessment Author Not at all 04/07/2025 9:25 AM Kamila Pierre MA * Feeling tired or having little energy Answer Date of Assessment Author Not at all 04/07/2025 9:25 AM Kamila Pierre MA * Poor appetite or overeating Answer Date of Assessment Author Not at all 04/07/2025 9:25 AM Kamila Pierre MA * Feeling bad about yourself - or that you are a failure or have let yourself or your family down Answer Date of Assessment Author Not at all 04/07/2025 9:25 AM Kamila Pierre MA * Trouble concentrating on things, such as reading the newspaper or watching television Answer Date of Assessment Author Not at all 04/07/2025 9:25 AM Kamila Pierre MA * Moving or speaking so slowly that other people could have noticed? Or the opposite - being so fidgety or restless that you have been moving around a lot more than usual. Answer Date of Assessment Author Not at all 04/07/2025 9:25 AM Kamila Pierre MA * Thoughts that you would be better off or hurting yourself in some way Answer Date of Assessment Author Not at all 04/07/2025 9:25 AM Kamila Pierre MA * Patient Health Questionnaire-9 Score Answer Date of Assessment Author 0 04/07/2025 9:25 AM Kamila Pierre MA * Over the last 2 weeks, how often have you been bothered by any of the following problems? Question Answer Date of Assessment Author Feeling nervous, anxious, or on edge 0 04/07/2025 9:25 AM Meaghan Pierre MA Not being able to stop or co ntrol worrying 0 04/07/2025 9:25 AM Meaghan Pierre MA Worrying too much about diff erent things 0 04/07/2025 9:25 AM Meaghan Pierre MA Trouble relaxing 0 04/07/2025 9:25 AM EDT Meaghan Welch MA Being so restless that it is hard to sit still 0 04/07/2025 9:25 AM EDT Meaghan Teixeira MA Becoming easily annoyed or irritable 0 04/07/2025 9:25 AM EDT Meaghan Teixeira MA Feeling afraid as if somethi ng awful might happen 0 04/07/2025 9:25 AM EDT Meaghan Teixeira MA YURI-7 Total Score 0 04/07/2025 9:25 AM EDT Meaghan Teixeira MA documented as of this encounter Plan of Treatment Scheduled Orders Name Type Priority Associated Diagnoses Orde r Schedule Albumin, Random Urine W/Creatinine Lab Routine Annual physical exam Expected: 04/07/2025 (Approximate), Expires: 04/07/2026 Comprehensive Metabolic Panel Lab Routine Annual physical exam Expected: 04/07/2025 (Approximate), Expires: 04/07/2026 Lipid Panel, Standard Lab Routine Annual physical exam Expected: 04/07/2025 (Approximate), Expires: 04/07/2026 Vitamin B12 (Cobalamin) and Folate Panel, Serum Lab Routine Annual physical exam Expected: 04/07/2025 (Approximate), Expires: 04/07/2026 Chlamydia/Trichomonas/Neiss eria gonorrhoeae, PCR, Urine Lab Routine Annual physical exam Ordered: 04/07/2025 Hepatitis B surface antigen, EIA Lab Routine Annual physical exam Expected: 04/07/2025 (Approximate), Expires: 04/07/2026 Hepatitis C Antibody with Reflex to HCV, RNA, Quantitative, Real-Time PCR Lab Routine Annual physical exam Expected: 04/07/2025 (Approximate), Expires: 04/07/2026 HIV-1/2 Antigen and Antibodies, Fourth Generation, with Reflexes Lab Routine Annual physical exam Expected: 04/07/2025 (Approximate), Expires: 04/07/2026 Syphilis Screen Lab Routine Annual physical exam Expected: 04/07/2025 (Approximate), Expires: 04/07/2026 T4, Free Lab Routine Annual physical exam Expected: 04/07/2025 (Approximate), Expires: 04/07/2026 TSH Lab STAT Annual physical exam Expected: 04/07/2025 (Approximate), Expires: 04/07/2026 documented as of this encounter Procedures Procedure Name Priority Date/Time Associated Diagnosis Comments CBC WITH AUTO DIFFERENTIAL Routine 04/07/2025 10:10 AM EDT Annual physical exam HEMOGLOBIN A1C Routine 04/07/2025 10:10 AM EDT Annual physical exam documented in this encounter Results * CBC auto differential (04/07/2025 10:10 AM EDT) White Blood Count 7.3 4.8 - 10.8 X10*3/uL [facility] Red Blood Count 5.32 4.60 - 5.80 X10*6/uL [facility] Hemoglobin 15.1 14.0 - 18.0 g/dl [facility] Hematocrit 45.9 42.0 - 52.0 % [facility] Mean Corpuscular Volume 86.3 80.0 - 98.0 fL [facility] Mean Corpuscular Hemoglobin 28.4 27.0 - 33.0 pg [facility] Mean Corpuscular HGB Conc 32.9 31.0 - 36.0 g/dl [facility] Red Cell Distribution Width 12.9 11.0 - 16.0 % [facility] Platelet Count 333 160 - 400 X10*3/uL [facility] Mean Platelet Volume 10.0 9.4 - 12.4 fL [facility] Neutrophils Percent Auto 55.8 45 - 73 % [facility] Imm Gran Pct Auto 0.4 0.0 - 0.4 % [facility] Lymphocytes Percent Auto 32.7 20 - 40 % [facility] Monocytes Percent Auto 8.6 2 - 11 % [facility] Eosinophils Percent Auto 1.8 0 - 4 % [facility] Basophils Percent Auto 0.7 0 - 2 % [facility] NRBC Pct Auto 0.0 0.0 - 0.2 /100WBC [facility] Neutrophils Absolute Auto 4.1 2.0 - 8.3 x10*3/uL [facility] Imm Gran Abs Auto 0.03 0.00 - 0.03 X10*3/uL [facility] Lymphocytes Absolute Auto 2.4 1.2 - 4.9 X10*3/uL [facility] Monocytes Absolute Auto 0.6 0.1 - 1.2 X10*3/uL [facility] Eosinophils Absolute Auto 0.1 0.0 - 0.4 X10*3/uL [facility] Basophils Absolute Auto 0.1 0.0 - 0.2 X10*3/uL [facility] NRBC Abs Auto 0.000 0.0 - 0.012 X10*3/uL [facility] Blood Venous blood specimen / Unknown 04/07/2025 10:10 AM EDT 04/07/2025 11:09 AM EDT Yue Montero MD LAB BLOOD ORDERAB LES Final Result [facility] [address] [place] [address] [phone] * (ABNORMAL) Hemoglobin A1c (04/07/2025 10:10 AM EDT) Hemoglobin A1c 6.1(H) <6.0 % [facility] Comment:Hemoglobin A1C Refer ence Range Adults: 4.8 - 6.0 % Non diabetic: < 6.0 % Goal: < 7.0 %Additional Action Suggested: > 8.0 %Note: Hemoglobin A1c results are invalid for patients with abnormal amounts of HbF. Blood transfusions may impact the HbA1c concentration in the patient sample. Estimated Average Glucose 128 mg/dL [facility] Comment:eAG = Estimated ave rage glucose which is %A1C expressed asaverage glucose, using the formula of the [id number] Glucose study (ADAG), Diabetes Care, Vol.31,#8,Jan. 2007 Blood Venous blood specimen / Unknown 04/07/2025 10:10 AM EDT 04/07/2025 11:09 AM EDT Yue Montero MD LAB BLOOD ORDERAB LES Final Result [facility] [address] [place] [address] [phone] documented in this encounter Visit Diagnoses Diagnosis Annual physical exam- Primary Routine general medical examination at a health care facility Encounter for vaccination Encounter for immunization documented in this encounter Additional Health Concerns Assessment Noted Time PHQ-9 Depression Total Score: 0 04/07/20 25 9:25 AM EDT documented as of this encounter Care Teams Aviation Survival Technician Relationship Specialty Start Date End Date Yue Quiros MD [address] [place] [address] PCP - General Internal Medicine 11/01/22 documented as of this encounter
[2025-04-07 11:13] LABS: MANUAL DIFF FLAG NO
[2025-04-07 11:31] LABS: Hematocrit 45.9 % (42.0-52.0); Hemoglobin 15.1 g/dl (14.0-18.0); Imm Gran Abs Auto 0.03 X10*3/uL (0.00-0.03); Imm Gran Pct Auto 0.4 % (0.0-0.4); Lymphocytes Absolute Auto 2.4 X10*3/uL (1.2-4.9); Mean Corpuscular HGB Conc 32.9 g/dl (31.0-36.0); Mean Corpuscular Hemoglobin 28.4 pg (27.0-33.0); Mean Corpuscular Volume 86.3 fL (80.0-98.0); NRBC Abs Auto 0.000 X10*3/uL (0.0-0.012); NRBC Pct Auto 0.0 /100WBC (0.0-0.2); Platelet Count 333 X10*3/uL (160-400); Red Blood Count 5.32 X10*6/uL (4.60-5.80); White Blood Count 7.3 X10*3/uL (4.8-10.8)
--- OUTSIDE RECORDS SUMMARY | 2025-04-07 11:49 | XMS_ITS | Encounter Summary ---
Author Organization [employer] Address [address] [place] [address] 7 [place] [address] Care Team Providers Care Vibration Analyst Name Role Phone Yue Quiros MD Primary Care Pro vider Reason for Visit * Reason Comments Med Refill Encounter Details Date Type Department Care Team ([facility] st Contact Info) Description 07/13/2024 Refill [facility] [address] [place] [address] Yue Quiros MD [address] [place] [address] Social History Tobacco Use Types Packs/Day Years Used Date Smoking Tobacco: Never Passive Smoke Exposure: Never Smokeless Tobacco: Never Alcohol Use Standard Drinks/Week Comments Yes 0 (1 standard drink = 0.6 oz pure alcohol) 3 times a week -2-3 glasses of wine Depression Answer Date Recorded Patient Health Questionnaire-9 Score 2 03/14/2024 Patient Health Questionnaire-9 Score 2 03/14/2024 Last PHQ-9: Questionnaire Data Not on file 0 03/14/2024 Housing Stability Answer Date Recorded What is your housing situation today? I have [employer] [place] 01/16/[address] you li ve. Do you have problems with any of the following? None of the above 01/16/2024 Food Insecurity Answer Date Recorded Within the past 12 months, y ou worried that your food would run out before you got money to buy more: Never True 01/16/2024 Within the past 12 months,th e food you bought just didn't last and you didn't have enough money to get more: Never True Transportation Answer Date Recorded In the past 12 months, has l ack of transportation kept you from medical appts, meetings, work or from getting things needed for daily living? No 01/16/2024 Utilities Answer Date Recorded In the past 12 months, has t he electric, gas, oil or water company threatened to shut off services in your home? No 01/16/2024 Depression Answer Date Recorded Patient Health Questionnaire-2 Score 1 03/14/2024 Internet Access Answer Date Recorded Internet Access Q1 Yes 03/03/2024 Internet Access Q2 Not on file 03/03/2024 Sex and Gender Information Value Date Recorded Sex Assigned at Male 12/13/2022 9:17 AM EDT Legal Sex Male 9:39 AM EDT Gender Identity Male 12/13/2022 9:17 AM EDT Sexual Orientation Straight 12/13/2022 9: 17 AM EDT documented as of this encounter Plan of Treatment Not on file documented as of this encounter Visit Diagnoses Not on filedocumented in this encounter Additional Health Concerns Assessment Noted Time PHQ-9 Depression Total Score: 2 03/14/20 24 10:18 AM EDT documented as of this encounter Care Teams Vibration Analyst Relationship Specialty Start Date End Date Yue Quiros MD [address] [place] [id number] PCP - General Internal Medicine 11/01/22 documented as of this encounter
--- OUTSIDE RECORDS SUMMARY | 2025-04-07 11:49 | XMS_ITS | Encounter Summary ---
Author Organization [employer] Address [address] [place] [address] 7 [place] [address] Care Team Providers Care Supervisor Inventory Merchandising Name Role Phone Yue Quiros MD Primary Care Pro vider Reason for Visit * Reason Comments Med Refill Encounter Details Date Type Department Care Team ([facility] st Contact Info) Description 12/12/2023 Refill [facility] [address] [place] [address] Yue Quiros MD [address] [place] [address] Social History Tobacco Use Types Packs/Day Years Used Date Smoking Tobacco: Never Passive Smoke Exposure: Never Smokeless Tobacco: Never Alcohol Use Standard Drinks/Week Comments Yes 0 (1 standard drink = 0.6 oz pure alcohol) 3 times a week -2-3 glasses of wine PHQ-2 Answer Date Recorded Patient Health Questionnaire-2 Score 0 12/13/2022 Housing Stability Answer Date Recorded What is your housing situation today? I have williams [place] 04/16/[address] you li ve. Do you have problems with any of the following? None of the above 04/16/2023 Food Insecurity Answer Date Recorded Within the past 12 months, y ou worried that your food would run out before you got money to buy more: Never True 04/16/2023 Within the past 12 months,th e food you bought just didn't last and you didn't have enough money to get more: Never True Transportation Answer Date Recorded In the past 12 months, has l ack of transportation kept you from medical appts, meetings, work or from getting things needed for daily living? No 04/16/2023 Utilities Answer Date Recorded In the past 12 months, has t he electric, gas, oil or water company threatened to shut off services in your home? No 04/16/2023 Depression Answer Date Recorded Patient Health Questionnaire-2 Score 0 12/13/2022 Sex and Gender Information Value Date Recorded Sex Assigned at Male 12/13/2022 9:17 AM EDT Legal Sex Male 9:39 AM EDT Gender Identity Male 12/13/2022 9:17 AM EDT Sexual Orientation Straight 12/13/2022 9: 17 AM EDT documented as of this encounter Miscellaneous Notes * Telephone Encounter - Yue Montero MD - 12/14/2023 4:26 PM EDT Pt taking now 500 mg BID * Telephone Encounter - Breanne Barrow RN - 12/14/2023 4:20 PM EDT Telephone call placed to pt who confirms he is taking metformin 1000mg 1/2 tab BID (so 500mg BID) documented in this encounter Plan of Treatment Not on file documented as of this encounter Visit Diagnoses Not on filedocumented in this encounter Care Teams Supervisor Inventory Merchandising Relationship Specialty Start Date End Date Yue Quiros MD [address] [place] [id number] PCP - General Internal Medicine 11/01/22 documented as of this encounter
--- OUTSIDE RECORDS SUMMARY | 2025-04-07 11:49 | XMS_ITS | Encounter Summary ---
Author Organization [employer] Address [address] [place] [address] [place] [address] Care Team Providers Care Comedian Name Role Phone Yue Quiros MD Primary Care Pro vider Reason for Visit * Reason Onset Date Comments chart prep 04/06/2025 Encounter Details Date Type Department Care Team ([facility] st Contact Info) Description 04/06/2025 Telephone [facility] [address] [place] [address] Yue Quiros MD [address] [place] [address] chart prep Social History Tobacco Use Types Packs/Day Years [...] housing situation today? I have [employer] 04/07/[address] you [...] encounter Miscellaneous Notes * Telephone Encounter - Mary Pérez MA - 04/06/2025 9:36 AM EDT Chart Prep Labs: not applicable Images: not applicable Referrals: not applicable Vaccines due: Covid, Flu, Tdap, Hep B, and HPV Screenings: eye exam and foot exam Overdue care gaps: A1c, Glucose, SBIRT, SDOH, PHQ-9, YURI-7, Oral health screening, and Disability screen documented in this encounter Plan of Treatment Not on file documented as of this encounter Visit Diagnoses Not on filedocumented in this encounter Additional Health Concerns Assessment Noted Time PHQ-9 Depression Total Score: 2 03/14/20 24 10:18 AM EDT documented as of this encounter Care Teams Comedian Relationship Specialty Start Date End Date Yue Quiros MD [address] [place] [id number] PCP - General Internal Medicine 11/01/22 documented as of this encounter
--- OUTSIDE RECORDS SUMMARY | 2025-04-07 11:49 | XMS_ITS | Clinical Summary ---
Author Organization [employer] Address [address] [facility] [facility] [address] [place] [address] Care Team Providers Care Ludlow Machine Operator Name Role Phone Yue Quiros MD Primary Care Pro vider Allergies Active Allergy Reactions Criticality Noted Date Comments Penicillins Hives 12/13/2022 Medications Blood Glucose Monitoring Suppl (FreeStyle Lite) w/Device kitIndications: Type 2 diabetes mellitus without complication, without long-term current use of insulin (HCC) 1 kit Once daily. 1 kit 02/23/20 23 Active FREESTYLE LITE test stripIndication s:Type 2 diabetes mellitus without complication, without long-term current use of insulin (HCC) 1 each by Other route in the morning. 100 each 12 02/23/20 23 Active BERBERINE CHLORIDE PO Take 4,000 mg by mouth. OTC Active levothyroxine (Synthroid, Levoxyl) 25 MCG tablet TAKE 1 TABLET(25 MCG) BY MOUTH BEFORE BREAKFAST 90 tablet 1 11/14/19 25 Active metFORMIN (Glucophage) 500 MG tablet TAKE 1 TABLET BY MOUTH WITH BREAKFAST AND WITH EVENING MEAL 180 tablet 1 02/26/20 25 Active Fatty Acid Base misc 1 tablet. Active alpha tocopherol (Vitamin E) 400 units capsule Take 400 Units by mouth in the morning. Discontinu ed(Other) Ascorbic Acid (vitamin C) 250 MG tablet Take 250 mg by mouth in the morning. Discontinu ed(Other) cholecalciferol (Vitamin D-3) 10 MCG (400 UNIT) tablet Take 2 tablets by mouth. OTC Discontinu ed(Other) Red Yeast Rice Extract (RED YEAST RICE PO) Take by mouth. 10/07/ 2 025 Discontinu ed(Other) Nirmatrelvir&Ri tonavir 300/100 (Paxlovid, 300/100,) 20 x 150 MG & 10 x 100MG tablet therapy packIndications :Infection caused by 2019 Novel Coronavirus Take 3 tablets by mouth 2 times daily for 5 days. Take 2 tabs (300mg of nirmatrelvir) and 1 tab (100mg of ritonavir) PO BID for 5 days. No renal failure. Possible medication interactions reviewed. 30 each 03/05/20 25 025 Active Problems Problem Noted Date Diagnosed Date COVID-19 virus infection 03/07/2025 Overweight (BMI 25.0-29.9) 07/24/2023 Hyperlipidemia 07/24/2023 Hypothyroidism 01/10/2023 Assessment & Plan (01/10/2023 11:54 AM EDT): 11/2022 TSH 8.72<---3.80 w low initial total T4 at 3.9 and normal but borderline low free T4 at 0.8 but repeated normal Did complete lab workup to r/o secondary hypothyroidism -all labs were normal Pt reports hx of low sperm count w infertility -continue levothyroxine 25 mgc daily resumed 3 weeks ago( pt was on med years ago but stopped care w endo) -ordered today TFT to have them done in 4 weeks --Will call pt w lab results in case needs to adjust dose otherwise will do refill of current dose --pt will call here in 1 week after labs are done if not getting a call back to go over result Other specified diabetes tatyana litus with other specified complication, unspecified whether mcc insulin use 12/13/2022 Assessment & Plan (01/10/2023 12:01 PM EDT): Pt w DM 2 since 15 y of age -told to be 2/2 from obesity 11/2022 hb1AC 7.9, Microalb neg , LDL 180 -ophthalmology saw per pt in 06/2022 told to be normal -a/c technician -never --referred already-pd to schedule apt -continue metformin 1000 mg but advised to take BID from daily -will repeat DM labs in 3 mo to monitor hb1AC and lipids in fasting -referred to apparel designer -apt already x next month Assessment & Plan (12/13/2022 12:16 PM EDT): Pt w DM 2 since 15 y of age -told to be 2/2 from obesity Pt states was able to loose weight after started metformin ,never in any other DM meds nor insuline Today CBG 252 and hb1AC 7.9 -ophthalmology saw per pt in 06/2022 told to be normal -a/c technician -never --referred today -DM labs today -start metformin 100 mg -advised to start 1/2 Tab daily x 5 days then 1/2 tab BID x 5 days and then to take 1 gr BID -explained possible SE -will repeat DM labs in 3 mo to monitor Health care maintenance 12/13/2022 Assessment & Plan (01/10/2023 12:01 PM EDT): -vaccine: s/p covid 19 x3 --s/p Bivalent 11/2022 and p20 11/2022 x DM,tdap per pt in 2017 , pt unsure about HPV vaccine -will try to find records and if never advised to go to vaccine clinic if interested x vaccine , hep B immune ----- -from annual labs noted in 11/2022 RPR 1;1 but neg FTA-pt denies hx of syphilis dx/tx--so likely a FP --will repeat syphilis screen in 3 mo to monitor RPR if higher would tx as latent but seems less likely Assessment & Plan (12/13/2022 12:19 PM EDT): -vaccine: pt ill try to bring vaccine records at next visit , s/p covid 19 x3 --Bivalent today and p20 today x DM -labs x annual exam today -pt agreed to have STI testing including HIV to have for baseline ,will check TSH ,T4 and id actual need to resume med-pt unsure about dose of levothyroxine that took 8 y ago Penicillin allergy 12/13/2022 Assessment & Plan (01/10/2023 11:58 AM EDT): Reports hx of rash w [facility] like 10 y ago --referred to fountain brush assembler to clarify if actual true allergy -pd to schedule apt Assessment & Plan (12/13/2022 12:17 PM EDT): Reports hx of rash w C like 10 y ago --referred today to fountain brush assembler to clarify if actual true allergy Infertility male 12/13/2022 Assessment & Plan (01/10/2023 11:55 AM EDT): concern that has not been able to conceive w ,trying x last year ,states took home test and had low sperm count ,states was already tested and was told to be fine. -referred to urologist-has apt x 02/13/2023 -in tx x hypothyroidism Assessment & Plan (12/13/2022 12:20 PM EDT): concern that has not been able to conceive w ,trying x last year ,states took home test and had low sperm count ,states was already tested and was told to be fine. -referred today to urologist -will do annual labs today Resolved Problems Problem Noted Date Diagnosed Date Resolved Date Obesity (BMI 30-39.9) 12/13/20222023 Assessment & Plan (01/10/2023 11:56 AM EDT): Advised pt to improve diet and exercise,discussed healthy life style -lost 4 pounds in last month -discussed apparel designer referral -referred already -apt x 02/20/2023 -advised to decrease ETOH intake -taking 2 to 3 glasses of wine 3 times a week Encounters Date Type Department Care Team Description 04/07/2025 9:15 AM EDT Office Visit [facility] [address] [place] [phone] Yue Quiros MD Annual physical exam (Primary Dx); Encounter for vaccination; Encounter for immunization 04/07/2025 Travel 04/06/2025 Telephone [facility] [address] [place] [phone] Yue Quiros MD chart prep 03/31/2025 Patient Outreach [address] [phone] Yue Quiros MD Pre-visit Planning (Pre visit planning LVM ) 03/05/2025 9:00 AM EDT Office Visit [facility] [address] [place] [address] Yue Quiros MD COVID-19 (Primary Dx); Other specified diabetes mellitus with other specified complication, unspecified whether mcc insulin use ([facility]); Dietary counseling; Exercise counseling; Health care maintenance; COVID-19 virus infection 03/05/2025 Telephone [facility] [address] [place] [address] Breanne Barrow, JOHN NTTS 03/05/2025 Travel 03/05/2025 Telephone [facility] [address] [place], [place] [phone] Yue Quiros MD Nurse Triage 02/25/2025 Refill [facility] [address] [place], [place] [phone] Sarah Lao MD 01/23/2025 Telephone [facility] [address] [place], [place] [phone] Yue Quiros MD sep recall 01/07/2025 Telephone [facility] [address] [place], [place] [phone] Yue Quiros MD Referral from Last 3 Months Immunizations Immunization Administration Dates Next Due Influenza injectable quadrivalent preservative f ree 04/12/2023 Influenza, seasonal, injectable, preservative fr ee 04/07/2025,03/14/2024 Moderna Covid-19 Vaccine 6+ Bivalent 12/13/2022 Pfizer Covid-19 Vaccine 12+ 04/07/2025 Pneumococcal Conjugate PCV 20 12/13/2022 Family History Medical History Relation Name Comments Diabetes Mother colon ca at 45 , DM2 Mother's Brother Diabetes Mother's Sister Relation Name Status Comments Mother Mother's Brother Mother's Sister Social History Tobacco Use Types Packs/Day Years [...] Orientation Straight 12/13/2022 9: 17 AM EDT Last Filed Vital Signs Vital Sign Reading [...] Mass Index 29.8 04/07/2025 9:24 AM EDT Plan of Treatment Health Maintenance Due Date Last Done Comments Diabetes: Foot Exam 1998 Eye Exam 1998 Family Planning (PISQ) 2003 HPV Vaccines (1 - Male 3-dose series) 2003 DTaP/Tdap/Td Vaccines (1 - Tdap) 2007 Hepatitis B Vaccines (1 of 3 - 19+ 3-dose series) 2007 Diabetes: Urine Protein Screening 03/06/2025 03/06/2024, 04/12/2023, 12/13/2022 Lipid Panel 03/06/2025 03/06/2024, 09/30, 07/10/2023, Additional history exists Diabetes: Hemoglobin A1C 10/06/2025 025, 03/06/2024, 10/17/2023, Additional history exists Alcohol/Substance Use Screening 04/07/2026 04/07/2025 Depression Screening 04/07/2026 04/07/2025, 04/07/20 25 Disability Screening 04/07/2026 04/07/2025 SDOH Screening 04/07/2026 04/07/2025 Tobacco Screening 04/07/2026 04/07/2025 Zoster Vaccines (1 of 2) 2038 RSV Patients and Patients Aged 60 years or older (1 - 1-dose 75+ series) 2063 Pneumococcal Vaccine: Pediatrics (0 to 5 Years) and At-Risk Patients (6 to 49) Years Completed 12/13/2022 HIV Screening Completed 03/06/2024, 12/13/2022 Hepatitis C Screening Completed 03/06/2024, 023 COVID-19 Vaccine Completed 04/07/2025, , 04/27/2021, Additional history exists Influenza Vaccine Completed 04/07/2025, , 04/12/2023 HIB Vaccines Aged Out No longer eligi ble based on patient's age to complete this topic Hepatitis A Vaccines Aged Out No long er eligible based on patient's age to complete this topic IPV Vaccines Aged Out No longer eligi ble based on patient's age to complete this topic Meningococcal B Vaccine Aged Out No l onger eligible based on patient's age to complete this topic Meningococcal Vaccine Aged Out No marc ever eligible based on patient's age to complete this topic RSV under 20 months Aged Out No longe r eligible based on patient's age to complete this topic Rotavirus Vaccines Aged Out No longer eligible based on patient's age to complete this topic Procedures Procedure Name Priority Date/Time Associated Diagnosis Comments CBC WITH AUTO DIFFERENTIAL Routine 04/07/2025 10:10 AM EDT Annual physical exam HEMOGLOBIN A1C Routine 04/07/2025 10:10 AM EDT Annual physical exam POCT COVID-19 AG PAUL ID NOW Routine 03/05/2025 9:27 AM EDT COVID-19 HEPATITIS C AB W/REFL TO HCV RNA, QN, PCR Routine 03/06/2024 8:41 AM EDT Annual physical exam HIV 1/2 ANTIGEN/ANTIBODY, FOURTH GENERATION W/RFL Routine 03/06/2024 8:41 AM EDT Annual physical exam LIPID PANEL, STANDARD Routine 03/06/2024 8:41 AM EDT Annual physical exam ALBUMIN, RANDOM URINE W/CREATININE Routine 03/06/2024 8:35 AM EDT Annual physical exam from Last 3 Months or Most Recently Relevant to Health Maintenance Results * CBC auto differential (04/07/2025 10:10 AM EDT) White Blood Count 7.3 4.8 - 10.8 X10*3/uL [facility] Red Blood Count 5.32 4.60 - 5.80 X10*6/uL [facility] Hemoglobin 15.1 14.0 - 18.0 g/dl [facility] Hematocrit 45.9 42.0 - 52.0 % [facility] Mean Corpuscular Volume 86.3 80.0 - 98.0 fL [facility] Mean Corpuscular Hemoglobin 28.4 27.0 - 33.0 pg [facility] Mean Corpuscular HGB Conc 32.9 31.0 - 36.0 g/dl [facility] Red Cell Distribution Width 12.9 11.0 - 16.0 % [facility] Platelet Count 333 160 - 400 X10*3/uL [facility] Mean Platelet Volume 10.0 9.4 - 12.4 fL [facility] Neutrophils Percent Auto 55.8 45 - 73 % [facility] Imm Gran Pct Auto 0.4 0.0 - 0.4 % [facility] Lymphocytes Percent Auto 32.7 20 - 40 % [facility] Monocytes Percent Auto 8.6 2 - 11 % [facility] Eosinophils Percent Auto 1.8 0 - 4 % [facility] Basophils Percent Auto 0.7 0 - 2 % [facility] NRBC Pct Auto 0.0 0.0 - 0.2 /100WBC [facility] Neutrophils Absolute Auto 4.1 2.0 - 8.3 x10*3/uL [facility] Imm Gran Abs Auto 0.03 0.00 - 0.03 X10*3/uL [facility] Lymphocytes Absolute Auto 2.4 1.2 - 4.9 X10*3/uL [facility] Monocytes Absolute Auto 0.6 0.1 - 1.2 X10*3/uL [facility] Eosinophils Absolute Auto 0.1 0.0 - 0.4 X10*3/uL [facility] Basophils Absolute Auto 0.1 0.0 - 0.2 X10*3/uL [facility] NRBC Abs Auto 0.000 0.0 - 0.012 X10*3/uL [facility] Blood Venous blood specimen / Unknown 04/07/2025 10:10 AM EDT 04/07/2025 11:09 AM EDT us Yue Montero MD LAB BLOOD ORDERAB LES Final Result [facility] [address] [place] [phone] * (ABNORMAL) Hemoglobin A1c (04/07/2025 10:10 AM EDT) Pathologist [facility] [place] Hemoglobin A1c 6.1(H) <6.0 % [facility] Comment:Hemoglobin A1C Refer ence Range Adults: 4.8 - 6.0 % Non diabetic: < 6.0 % Goal: < 7.0 %Additional Action Suggested: > 8.0 %Note: Hemoglobin A1c results are invalid for patients with abnormal amounts of HbF. Blood transfusions may impact the HbA1c concentration in the patient sample. Estimated Average Glucose 128 mg/dL [facility] Comment:eAG = Estimated ave rage glucose which is %A1C expressed asaverage glucose, using the formula of the N3V-[id number] Glucose study (ADAG), Diabetes Care, Vol.31,#8,2007 Blood Venous blood specimen / Unknown 04/07/2025 10:10 AM EDT 04/07/2025 11:09 AM EDT Yue Montero MD LAB BLOOD ORDERAB LES Final Result [facility] [address] [place] [phone] * (ABNORMAL) POCT Rapid Covid-19 PAUL ID NOW (03/05/2025 9:27 AM EDT) Pathologist [facility] [place] Coronavirus Antigen PCR Positive (A) Negative, Indeterminate, None Detected, Invalid, Specimen unsatisfactory for evaluation, Weakly Positive, 2+ QC Media Lot # [id number] Lot# Expiration Date ,0 26 Swab 03/05/2025 9:27 AM EDT Yue Montero MD POINT OF CARE STEWART T ENTER/EDIT ORDERABLES Final Result * Hepatitis C Antibody with Reflex to HCV, RNA, Quantitative, Real-Time PCR (03/06/2024 8:41 AM EDT) [facility] Hepatitis C Antibody Nonreactive Nonreactive [facility] Comment:Antibodies to HCV no t detected; does not exclude early acuteHCV infection. Blood Venous blood specimen / Unknown 03/06/2024 8:41 AM EDT 03/06/2024 11:23 AM EDT us Yue Montero MD LAB BLOOD ORDERAB LES Final Result Performing Organization Address [facility]/ZIP Co de Phone Number [facility] [address] [place] [phone] * HIV-1/2 Antigen and Antibodies, Fourth Generation, with Reflexes (03/06/2024 8:41 AM EDT) Pathologist [facility] [place] HIV AB/AG Nonreactive Nonreactive [facility] Comment:HIV-1 p24 Ag and/or HIV-1/HIV-2 Ab not detected.A test result that is nonreactive does not exclude thepossibility of exposure to or infection with HIV-1 and/orHIV-2. Nonreactive results in this assay for individualswith prior exposure to HIV-1 and/or HIV-2 may be due toantigen and antibody levels that are below the limit ofdetection of this assay.The [employer]T HIV Ag/Ab Combo assay result andsupplemental assay results should be interpreted inconjunction with the patient's clinical presentation,history and other laboratory results. If the results areinconsistent with clinical evidence, additional testing issuggested to confirm the result. Blood Venous blood specimen / Unknown 03/06/2024 8:41 AM EDT 03/06/2024 11:23 AM EDT us Yue Montero MD LAB BLOOD ORDERAB LES Final Result Performing Organization Address City/[facility]/ZIP Co de Phone Number [facility] [address] [place] [phone] * (ABNORMAL) Lipid Panel, Standard (03/06/2024 8:41 AM EDT) Triglycerides 98 <150 mg/dL [facility] Comment:Desirable Triglyceri de: less than 150 mg/dLBorderline High Triglyceride 150-199 mg/dLHigh Triglyceride: 200-499 mg/dLVery High Triglyceride: greater than or equal to 5OO mg/dL Cholesterol 258(H) <200 mg/dL [facility] Comment:Desirable Cholestero l: less than 200 mg/dLBorderline High Cholesterol: 200-239 mg/dLHigh Cholesterol: greater than 239 mg/dL LDL Cholesterol Calculated 172(H) <100 mg/dL [facility] Comment:Desirable LDL: less than 100 mg/dLNear Optimal/Above Optimal LDL: 110- 129 mg/dLBorderline High LDL: 130-159 mg/dLHigh LDL: 160-189 mg/dLVery High LDL: greater than or equal to 190 mg/dL HDL Cholesterol 67 >40 mg/dL [facility] Comment:Desirable HDL: great er than 40 mg/dL Note: This HDL assay may give artificially low results in patients with liver disease. Blood Venous blood specimen / Unknown 03/06/2024 8:41 AM EDT 03/06/2024 11:23 AM EDT us Yue Montero MD LAB BLOOD ORDERAB LES Final Result [facility] [address] [place] [phone] * Albumin, Random Urine W/Creatinine (03/06/2024 8:35 AM EDT) Creatinine, Urine 103.76 mg/dL [facility] Microalbumin Urine <5.0 mg/L [facility] Microalbum Creatinine Ratio Ur TNP <30 ug/mg cr [facility] Comment:Unable to calculate albumin/creatinine ratio due to lowmicroalbumin or creatinine result. Urine (Urine, Random) 03/06/2024 8:35 AM EDT 03/06/2024 11:10 AM EDT us Yue Montero MD LAB URINE ORDERAB LES Final Result [facility] [address] [place] [phone] from Last 3 Months or Most Recently Relevant to Health Maintenance Insurance [employer] PPO Care Teams Ludlow Machine Operator Relationship Specialty Start Date End Date Yue Quiros MD [address] [place] [address] PCP - General Internal Medicine 11/01/22
--- OUTSIDE RECORDS SUMMARY | 2025-04-07 11:49 | XMS_ITS | Encounter Summary ---
Author Organization [employer] Address [address] [place] [address] Care Team Providers Care Car Usher Name Role Phone Yue Quiros MD Primary Care Pro vider Encounter Details Date Type Department Care Team (Latest Contact Info) Description 04/07/2025 Travel Social History Tobacco Use Types Packs/Day Years [...] AM EDT documented as of this encounter Functional Status * Over the [...] AM EDT Kamila Teixeira MA * Feeling tired or having little energy Answer Date of Assessment Author Not at all 04/07/2025 9:25 AM EDT Kamila Teixeira MA * Poor appetite or overeating Answer Date of Assessment Author Not at all 04/07/2025 9:25 AM EDT Kamila Teixeira MA * Feeling bad about yourself - or that you are a failure or have let yourself or your family down Answer Date of Assessment Author Not at all 04/07/2025 9:25 AM Kamila Pierre MA * Trouble concentrating on things, such as reading the newspaper or watching television Answer Date of Assessment Author Not at all 04/07/2025 9:25 AM MARCT Kamila Teixeira MA * Moving or speaking so slowly that other people could have noticed? Or the opposite - being so fidgety or restless that you have been moving around a lot more than usual. Answer Date of Assessment Author Not at all 04/07/2025 9:25 AM EDT Kamila Teixeira MA * Thoughts that you would be better off or hurting yourself in some way Answer Date of Assessment Author Not at all 04/07/2025 9:25 AM EDT Kamila Teixeira MA * Patient Health Questionnaire-9 Score Answer Date of Assessment Author 0 04/07/2025 9:25 AM EDT Kamila Teixeira MA * Over the last 2 weeks, how often have you been bothered by any of the following problems? Question Answer Date of Assessment Author Feeling nervous, anxious, or on edge 0 04/07/2025 9:25 AM EDT Meaghan Teixeira MA Not being able to stop or co ntrol worrying 0 04/07/2025 9:25 AM EDT Meaghan Teixeira MA Worrying too much about diff erent things 0 04/07/2025 9:25 AM EDT Meaghan Teixeira MA Trouble relaxing 0 04/07/2025 9:25 AM EDT Meaghan Welch MA Being so restless that it is hard to sit still 0 04/07/2025 9:25 AM EDT Meaghan Teixeira MA Becoming easily annoyed or irritable 0 04/07/2025 9:25 AM MARCT Meaghan Teixeira MA Feeling afraid as if somethi ng awful might happen 0 04/07/2025 9:25 AM EDT Meaghan Teixeira MA YURI-7 Total Score 0 04/07/2025 9:25 AM MARCT Meaghan Teixeira MA documented as of this encounter Plan of Treatment Not on file documented as of this encounter Visit Diagnoses Not on filedocumented in this encounter Additional Health Concerns Assessment Noted Time PHQ-9 Depression Total Score: 0 04/07/20 9:25 AM EDT documented as of this encounter Care Teams Car Usher Relationship Specialty Start Date End Date Yue Quiros MD [address] [place] [phone] PCP - General Internal Medicine 11/01/22 documented as of this encounter
--- OUTSIDE RECORDS SUMMARY | 2025-04-07 11:49 | XMS_ITS | Encounter Summary ---
Author Organization [employer] Address [address] [place] [address] [address], [place] [address] Care Team Providers Care Drill Sharpener Name Role Phone Yue Quiros MD Primary Care Pro vider Reason for Visit * Reason Comments Med Refill Encounter Details Date Type Department Care Team (Late st Contact Info) Description 02/15/2023 Refill [facility] [address] [place] [phone] Yue Quiros MD [address] [place] [phone] Social History Tobacco Use Types Packs/Day Years Used Date Smoking Tobacco: Never Passive Smoke Exposure: Never Smokeless Tobacco: Never Alcohol Use Standard Drinks/Week Comments Yes 0 (1 standard drink = 0.6 oz pure alcohol) 3 times a week -2-3 glasses of wine PHQ-2 Answer Date Recorded Patient Health Questionnaire-2 Score 0 12/13/2022 Depression Answer Date Recorded Patient Health Questionnaire-2 [...] on filedocumented in this encounter Care Teams Drill Sharpener Relationship Specialty Start Date End Date Yue Quiros MD [address] [place] [address] PCP - General Internal Medicine 11/01/22 documented as of this encounter
--- OUTSIDE RECORDS SUMMARY | 2025-04-07 11:49 | XMS_ITS | Clinical Summary ---
Author Organization [facility] Address [address] [place] [phone] Phone Care Team Providers Care Closing Agent Name Role Phone Pcp, Not Required Primary Care Provider Unavaila ble Allergies Active Allergy Reactions Criticality Noted Date Comments Penicillins 09/21/2017 Social History Tobacco Use Types Packs/Day Years Used Date Smoking Tobacco: Never Assessed Sex and Gender Information Value Date Recorded Sex Assigned at Not on file Legal Sex Male 9:08 PM EDT Gender Identity Not on file Sexual Orientation Not on file Last Filed Vital Signs Vital Sign Reading Time Taken Comments Blood Pressure 118/68 09/21/2017 1:53 PM EDT Pulse 75 09/21/2017 1:53 PM EDT Temperature 37.4 C (99.4 F) 09/21/2017 1:53 PM EDT Respiratory Rate - - Oxygen Saturation 99% 09/21/2017 1:53 PM EDT Inhaled Oxygen Concentration - - Weight 71.7 kg (158 lb) 09/21/2017 1:53 PM EDT Height 162.6 cm (5' 4 ) 09/21/2017 1:53 PM EDT Body Mass Index 27.12 09/21/2017 1:53 PM EDT Plan of Treatment Not on file Medical Devices Not on file Insurance [facility] [address] [place], [place] [address] [address] [place] [address] [address] [address] [place], [place] [address]O [employer] [facility] Care Teams Closing Agent Relationship Specialty Start Date End Date Pcp, Not Required [address] [place] [address] PCP - General 09/21/17 Additional Source Comments The information contained in this document represents components of the legal health record. It is not the complete legal health record.[facility]
--- OUTSIDE RECORDS SUMMARY | 2025-04-07 11:49 | XMS_ITS | Encounter Summary ---
Author Organization [employer] Address [address] [place] [address] [address] [place] [address] Care Team Providers Care Lead Project Engineer Name Role Phone Yue Quiros MD Primary Care Pro vider Reason for Visit * Reason Comments Med Refill Encounter Details Date Type Department Care Team ([facility] st Contact Info) Description 03/18/2024 Refill [facility] [address] [place] [id number] Yue Quiros MD [address] [place] [address] Social History Tobacco Use Types Packs/Day Years [...] documented as of this encounter Care Teams Lead Project Engineer Relationship Specialty Start Date End Date Yue Quiros MD [address] [place] [id number] PCP - General Internal Medicine 11/01/22 documented as of this encounter
--- OUTSIDE RECORDS SUMMARY | 2025-04-07 11:49 | XMS_ITS | Encounter Summary ---
Author Organization [employer] Address [address] [place] [address] [address] [place] [address] Care Team Providers Care Underground Miner Name Role Phone Yue Quiros MD Primary Care Pro vider Reason for Visit * Reason Onset Date Comments Nurse Triage 02/18/2024 Encounter Details Date Type Department Care Team ([facility] st Contact Info) Description 02/18/2024 Telephone [facility] [address] [place] [address] Yue Quiros MD [address] [place] [address] Nurse Triage Social History Tobacco Use Types Packs/Day Years Used Date Smoking Tobacco: Never Passive Smoke Exposure: Never Smokeless Tobacco: Never Alcohol Use Standard Drinks/Week Comments Yes 0 (1 standard drink = 0.6 oz pure alcohol) 3 times a week -2-3 glasses of wine Depression Answer Date Recorded Patient Health Questionnaire-9 Score 5 01/16/2024 Patient Health Questionnaire-9 Score 5 01/16/2024 Last PHQ-9: Questionnaire Data Not on file 0 01/16/2024 Housing Stability Answer Date Recorded What is [...] Date Recorded Patient Health Questionnaire-2 Score 1 01/16/2024 Sex and Gender Information Value Date Recorded Sex Assigned at Male 12/13/2022 9:17 AM EDT Legal Sex Male 9:39 AM EDT Gender Identity Male 12/13/2022 9:17 AM EDT Sexual Orientation Straight 12/13/2022 9: 17 AM EDT documented as of this encounter Miscellaneous Notes * Telephone Encounter - Cierra Pardo RN - 02/18/2024 9:18 AM EDT Triage call Pt reports sore throat for week now. Pt reports other symptoms of diarrhea 3x/day, upset stomach, neg for fever, swollen lymph nodes in neck, sores on the back of tongue, earache and pressure left ear, post nasal drip and pain with swallowing. Pt reports using salt water gargles whichare effect to sooth pain, drinking adequate liquids. Pt is advised to come to [facility] today which is open till 8pm. Pt agrees with this disposition. Home care reviewed. Insurance is verified as active. Protocol Used: Sore Throat (Adult) Protocol-Based Disposition: See in Office or Video Visit Today Video visit not offered Positive Triage Questions: * Pus on tonsils (back of throat) and swollen neck lymph nodes ( glands ) * Earache also present * Patient wants to be seen * All higher-acuity triage questions were negative Care Advice Discussed: * Reassurance and Education - Sore Throat * Sore Throat * Soft Diet * Drink Plenty of Liquids * Reasons To Call Back - Sore throat is the main symptom and it lasts longer than 48 hours - Sore throat is mild but lasts longer than 4 days - Fever lasts longer than 3 days - You become worse * Telephone Encounter - Krystin Chatman - 02/18/2024 8:42 AM EDT Symptom: Sore Throat Outcome: Schedule an urgent appointment (within 4 hours) or talk to a nurse or provider soon Reason: Trouble drinking The caller accepted this outcome documented in this encounter Plan of Treatment Not on file documented as of this encounter Visit Diagnoses Not on filedocumented in this encounter Additional Health Concerns Assessment Noted Time PHQ-9 Depression Total Score: 5 01/16/20 24 8:56 AM EDT documented as of this encounter Care Teams Underground Miner Relationship Specialty Start Date End Date Yue Quiros MD [address] [place] [id number] PCP - General Internal Medicine 11/01/22 documented as of this encounter
[2025-04-07 12:04] LABS: Alanine Aminotransferase 24 U/L (0-40); Albumin Level 4.7 g/dL (3.5-5.0); Alkaline Phosphatase 44 U/L (39-117); Anion Gap 10 (12-20); Aspartate Amino Transferase 20 U/L (5-37); Blood Urea Nitrogen 18 mg/dL (9-16); Calcium 9.3 mg/dL (8.4-10.2); Carbon Dioxide 28 mmol/L (22-29); Chloride 107 mmol/L (96-108); Cholesterol 291 mg/dL (<200); Estimated Glomerular Filt Rate > 60; HDL Cholesterol 63 mg/dL (>40); Potassium 4.3 mmol/L (3.3-5.1); Sodium 141 mmol/L (135-145); Total Protein 7.7 g/dL (6.5-8.0); Triglycerides 74 mg/dL (<150)
[2025-04-07 12:19] LABS: Syphilis Screen Nonreactive (Nonreactive)
[2025-04-07 12:21] LABS: HBsAGNum1 0.59 S/CO (0.00-0.99); HIV Num 1 0.06 S/CO (0.00-0.99); Hepatitis B Surface Antigen Negative (Negative); ~HepC Num1 0.10 S/CO (0.00-0.79); ~Hepatitis C Antibody Nonreactive (Nonreactive)
[2025-04-07 12:26] LABS: Free T4 (Free Thyroxine) 0.87 ng/dL (0.71-1.85); Thyroid Stimulating Hormone 2.41 uIU/mL (0.32-4.0)
[2025-04-07 12:43] LABS: Folate 10.1 ng/mL (> or = 4.0); Vitamin B12 794 pg/mL (200-900)
[2025-04-07 13:02] LABS: CT PCR Urine NOT DETECTED (Not Detect.); NG PCR Urine NOT DETECTED (Not Detect.)
== END 2025-04-07 10:04 | disposition home or self-care (01) ==
LOC: HO.HHCL 10:03
PROVIDERS: PCP Student in an Organized Health Care Education/Training Program; Visit Provider Student in an Organized Health Care Education/Training Program
DX: Z00.00 Encounter for general adult medical examination without abnormal findings (principal); Z20.2 Contact with and (suspected) exposure to infections with a predominantly sexual mode of transmission; Z11.4 Encounter for screening for human immunodeficiency virus [HIV]; Z11.59 Encounter for screening for other viral diseases
CPT/HCPCS: 80053; 80061; 82043; 82570; 82607; 82746; 83036; 84439; 84443; 85025; 86780; 86803; 87340; 87389; 87491; 87591